=== PATIENT | female | born 1960 | race Caucasian/White ===

== ENCOUNTER 2018-01-01 05:44 | Day surgery (SDC) | payer OTHER ==
[2018-01-01] MEDS ORDERED: FENTAnyl 50 MCG/ML VIAL (08:01)
[2018-01-01] MEDS ORDERED: MIDAZOLAM 1 MG/ML 2 ML INJ (08:01)
== END 2018-01-01 17:09 | disposition home or self-care (01) ==
LOC: GIL 05:44
DX: K21.9 Gastro-esophageal reflux disease without esophagitis (principal); K44.9 Diaphragmatic hernia without obstruction or gangrene; K29.70 Gastritis, unspecified, without bleeding; K26.9 Duodenal ulcer, unspecified as acute or chronic, without hemorrhage or perforation; E03.9 Hypothyroidism, unspecified
CPT/HCPCS: 43239; 87081